=== PATIENT | male | born 1995 | race Caucasian/White ===

== ENCOUNTER 2021-06-17 11:52 | Outpatient (REF) | payer BC, SELFPAY ==
[2021-06-17 13:54] LABS: Alanine Aminotransferase 17 U/L (0-40); Albumin Level 4.5 g/dL (3.5-5.0); Alkaline Phosphatase 80 U/L (39-117); Anion Gap 10 (12-20); Aspartate Amino Transferase 21 U/L (5-37); Bilirubin Total 0.7 mg/dL (0.0-1.0); Blood Urea Nitrogen 17 mg/dL (9-16); Calcium 9.5 mg/dL (8.4-10.2); Carbon Dioxide 29 mmol/L (22-29); Chloride 104 mmol/L (96-108); Cholesterol 143 mg/dL; Estimated Glomerular Filt Rate > 60; Glucose Fasting 88 mg/dL (60-99); HDL Cholesterol 38 mg/dL; LDL Cholesterol Calculated 96 mg/dl; Potassium 4.4 mmol/L (3.3-5.1); Sodium 139 mmol/L (135-145); Total Protein 7.4 g/dL (6.5-8.0); Triglycerides 45 mg/dL
[2021-06-17 14:16] LABS: TSH reflex Free T4 0.73 uIU/mL (0.32-4.0)
[2021-06-17 15:31] LABS: CT PCR NOT DETECTED (Not Detect.); NG PCR NOT DETECTED (Not Detect.)
[2021-06-18 07:36] LABS: HBS Num1 3.56 mIU/mL (0-7.99); HBc Num1 0.08 S/CO (0.00-0.79); HBsAGNum1 0.17 S/CO (0.00-0.99); HIV AB/AG Nonreactive (Nonreactive); HIV Num 1 0.08 S/CO (0.00-0.99); Hepatitis B Core Antibody Nonreactive (Nonreactive); Hepatitis B Surface Antigen Negative (Negative); ~HepC Num1 0.09 S/CO (0.00-0.79); ~Hepatitis B Surface Antibody NONREACTIVE (Nonreactive); ~Hepatitis C Antibody Nonreactive (Nonreactive)
[2021-06-18 08:48] LABS: Syphilis Screen Nonreactive (Nonreactive)
== END 2021-06-17 11:53 | disposition home or self-care (01) ==
LOC: HO.WFDLDS 11:52
PROVIDERS: Visit Provider Family Medicine
DX: Z00.00 Encounter for general adult medical examination without abnormal findings (principal); Z11.3 Encounter for screening for infections with a predominantly sexual mode of transmission; Z11.4 Encounter for screening for human immunodeficiency virus [HIV]
CPT/HCPCS: 80053; 80061; 84443; 86704; 86706; 86780; 86803; 87340; 87389; 87491; 87591

== ENCOUNTER 2022-11-21 10:53 | Outpatient (AMB) | payer OTHER, SELFPAY ==
--- NOTE | 2022-11-21 10:58 | MHC.PC.OV ---
Vital Signs 11/21/22 11:00 Height 5 ft 8 in Weight 192 lb BMI 29.2 BP 118/68 Blood Pressure Location Lt brachial Position Sitting Pulse 72 Pulse Source Pulse Oximeter Pulse Oximetry (%) 99 Oxygen Delivery Method Room Air Intake Visit Reasons: severe back pain Intake Note: Patient is here with severe back 0ppain, worse with physical activity, starts by tailbone, then the pain travels downward toward testicles, he does have history of a hernia. Allergies No Known Allergies Allergy (Unverified 11/21/22 11:02) Tobacco use date assessed: 11/21/22 Dental Screening Dental Screen Date: 11/21/22 Did you have a dental visit in the last 12 months?: Yes Did you have a dental problem in the last 6 months where you did not have access to dental care?: No Was dental information given to patient?: Patient has dentist HPI severe back pain HPI Details 26 y/o male presents today with complaints of significant back pain. Pt reports pain worse with physical activity. Starts by tailbone, then the pain travels downward toward testicles. He reports he does have history of a hernia. He denies any dysuria or blood in urine. He denies any bulges. He denies any loss of urine or stools. He denies any weakness to his feet/toes. HPI Comments History of Present Illness Details Documentation assistance for Adelfo Guthrie MD, was provided by Shon Juarez, Machine [employer] Checker on 11/21/2022 11:36 AM EST. I, Dr. Guthrie, have read, observed, and verified documentation. 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 1. Little interest or pleasure in doing things: several days 2. Feeling down, depressed, or hopeless: not at all 3. Trouble falling or staying asleep, or sleeping too much: not at all 4. Feeling tired or having little energy: several days 5. Poor appetite or overeating: several days 6. Feeling bad about yourself - or that you are a failure or have let yourself or your family down: not at all 7. Trouble concentrating on things, such as reading the newspaper or watching television: not at all 8. Moving or speaking so slowly that other people could have noticed. Or the opposite - being so fidgety or restless that you have been moving around a lot more than usual: not at all 9. Thoughts that you would be better off or of hurting yourself in some way: not at all Total score: 3 Source: Developed by Drs. Kian Nichols, Jeniffer Hodgson, Zeus Chaudhry and colleagues, with an educational graciela from [employer]. AUDIT C Alcohol Use Questionnaire (AUDIT-C) 1. How often do you have a drink containing alcohol?: Monthly or less 2. How many drinks containing alcohol do you have on a typical day when you are drinking?: 3 or 4 3. How often do you have six or more drinks on one occasion?: Never Total Score: 2 LICHA-7 AMB Questionnaire LICHA-7 Date LICHA - 7 assessed: 11/21/22 Feeling nervous, anxious, or on edge: 3 = Nearly every day Not being able to stop or control worryin = Nearly every day Worrying too much about different things: 3 = Nearly every day Trouble relaxin = Several days Being so restless that it is hard to sit still: 0 = Not at all Becoming easily annoyed or irritable: 2 = More than half the days Feeling afraid as if something awful might happen: 0 = Not at all Total LICHA-7 score (0-4 normal; 5-9 mild; 10-14 moderate; 15-21 severe): 12 Source: Developed by Drs. Kian Nichols, Jeniffer Hodgson, Zeus Chaudhry and colleagues, with an educational graciela from [employer]. Review of Systems Const Denies chills, Denies fatigue, Denies fever(s), Denies headache(s) and Denies weakness ENT Denies dizziness and Denies headache(s) Card Denies dyspnea Resp Denies cough, Denies dyspnea, Denies wheezing and Denies other (shortness of breath) Musc Reports back pain, Denies numbness and Denies tingling Neuro Denies dizziness, Denies headache(s), Denies numbness, Denies tingling and Denies weakness Psych Denies anxiety and Denies depression Endo Denies fatigue Aller/Immun Denies wheezing Physical exam (Primary Care) Vital Signs: Last Vital Signs Pulse 72 11/21/22 11:00 BP 118/68 11/21/22 11:00 Pulse Ox 99 11/21/22 11:00 Oxygen Delivery Method Room Air 11/21/22 11:00 BMI result Body Mass Index 29.2 Tobacco/Smoking Status: Tobacco use Status Tobacco use date assessed 11/21/22 11/21/22 11:04 Patient Tobacco Use Status Never used Tobacco 11/21/22 10:59 e-Cigarette/Vaping Use Never Used 11/21/22 10:59 PHQ-9: PHQ-9 Score PHQ-9: Total score 3 11/21/22 11:07 Const General: well developed; No acute distress Nutritional Appearance: well nourished Orientation/consciousness: patient oriented x3 [facility] Head: Yes normocephalic and Yes atraumatic Eyes General: appearance normal, both eyes and all related structures Pupils: Equal, round and reactive pupils present EOM: EOMs intact bilaterally Resp Effort & Inspection: normal respiratory effort Neuro General: patient oriented x3 and gait normal Cranial nerves: Yes Equal, round and reactive pupils present Psych Affect: normal affect Assessment and Plan Assessment & Plan (1) Back pain: Code(s): M54.9 - Dorsalgia, unspecified Plan: Likely?muscular?strain. Reproducible?low?back?pain?at?left?upper?glute. Will?check?an?x-ray?to?rule?out?other?causes?of?low?back?pain?with?radiation?into?buttock?and?leg Will?give?him?meloxicam?and?a?short?course?of?muscle?relaxant Referred?to?physical?therapy Orders: Orders PT Evaluation and Treatment Today M54.9 - Dorsalgia, unspecified XR lumbar spine 2-3V Today M54.9 - Dorsalgia, unspecified Medications: New meloxicam 15 mg PO DAILY 30 tabs 2RF 30 days M54.9 - Dorsalgia, unspecified cyclobenzaprine 10 mg PO BEDTIME PRN 7 tabs 0RF muscle spasm 7 days M54.9 - Dorsalgia, unspecified Coding Level of Care Code Est Pt Level 3 (36909) Diagnoses Back pain M54.9
[2022-11-21 11:00] VITALS: BP 118/68; PULSE 72; O2SAT 99; BMI 29.2
== END 2022-11-21 11:42 | disposition home or self-care (01) ==
PROVIDERS: PCP Family Medicine; Visit Provider Family Medicine
DX: M54.9 Dorsalgia, unspecified (principal)
CPT/HCPCS: 99213

== ENCOUNTER 2022-11-22 11:20 | Outpatient (REF) | payer OTHER, SELFPAY ==
--- NOTE | ~2022-11-22 | XR_ITS ---
EXAMINATION: XR LUMBOSACRAL SPINE CLINICAL INFORMATION: Dorsalgia COMPARISON: None available. TECHNIQUE: Three views of the lumbosacral spine. FINDINGS: The vertebral bodies and posterior elements are normal. The disc spaces are preserved and the vertebral alignment is normal. The paraspinal soft tissues are normal. XR/XR lumbar spine 2-3V IMPRESSION: Unremarkable examination.
== END 2022-11-22 11:21 | disposition home or self-care (01) ==
LOC: HO.XRAY 11:20
PROVIDERS: PCP Family Medicine; Visit Provider Family Medicine
DX: M54.9 Dorsalgia, unspecified (principal)
CPT/HCPCS: 72100